=== PATIENT | female | born 1945 | race Caucasian/White ===

== ENCOUNTER → 2021-01-10 | Day surgery (SDC) | payer MEDICARE, BC ==
[~2021-01-10] MED LIST: AMITRIPTYLINE H10 MG PO; ARMOUR THYROID15 MG PO; ARMOUR THYROID60 MG PO; DIAZEPAM5 MG PO; MECLIZINE HCL25 MG PO; OMEPRAZOLE40 MG PO
== END | disposition home or self-care (01) ==
LOC: OR 05:55
PROVIDERS: Surgery
PROC: 0DB78ZX Excision of Stomach, Pylorus, Via Natural or Artificial Opening Endoscopic, Diagnostic (ICD-10-PCS; principal; 2021-01-10 08:00)
PROC: 0DJD8ZZ Inspection of Lower Intestinal Tract, Via Natural or Artificial Opening Endoscopic (ICD-10-PCS; 2021-01-10 08:00)
DX: K57.30 Diverticulosis of large intestine without perforation or abscess without bleeding (principal); K29.50 Unspecified chronic gastritis without bleeding; K31.89 Other diseases of stomach and duodenum; K64.9 Unspecified hemorrhoids; K21.9 Gastro-esophageal reflux disease without esophagitis; D64.9 Anemia, unspecified; M79.7 Fibromyalgia; E03.9 Hypothyroidism, unspecified; K58.9 Irritable bowel syndrome, unspecified; E55.9 Vitamin D deficiency, unspecified; G47.00 Insomnia, unspecified; Z79.899 Other long term (current) drug therapy; Z88.1 Allergy status to other antibiotic agents; Z90.49 Acquired absence of other specified parts of digestive tract; Z20.822 Contact with and (suspected) exposure to COVID-19
CPT/HCPCS: J2704; J7030